=== PATIENT | female | born 1945 | race Asian ===

== ENCOUNTER → 2016-07-29 | Outpatient (CLI) | payer OTHER, MEDICARE ==
[2016-07-25 10:57] LABS: BLOOD UREA NITROGEN 18 mg/dl (7-18); BUN/CREATININE RATIO 32.1 (10-20); CREATININE 0.56 mg/dl (0.60-1.20)
[~2016-07-29] MED LIST: GADAVIST IV PRN
--- NOTE | 2016-07-29 12:46 | DIAGNOSTIC IMAGING REPORT ---
MRI OF THE RIGHT FOOT WITHOUT AND WITH GADOLINIUM CLINICAL HISTORY: Palpable mass. History of non-Hodgkin's lymphoma. COMPARISON STUDY: No previous studies for comparison. FINDINGS: Imaging was performed the sagittal, axial, and coronal planes before and after administration of 4.4 cc of intravenous Gadavist. At the level of palpable abnormality there is a 7 mm cystic lesion located dorsally near the bases of the first and second metatarsals. There is minimal joint fluid at the level the first and second tarsometatarsal joints. This lesion is most consistent with a small cyst/ganglion. There is no pathologic enhancement. There are no areas of marrow edema to indicate bony neoplasm. IMPRESSION: 7 mm cystic lesion located dorsally near the base the first and second metatarsals. This is most consistent with a small cyst/ganglion. Electronically signed by: Nick Montiel M.D. 07/29/2016 12:45 PM Dictated Date/Time: 07/29/2016 12:36 PM
== END | disposition home or self-care (01) ==
LOC: C.MRI 10:36
PROVIDERS: ATTEND Podiatrist
DX: M67.471 Ganglion, right ankle and foot (principal); E11.9 Type 2 diabetes mellitus without complications; D21.21 Benign neoplasm of connective and other soft tissue of right lower limb, including hip

== ENCOUNTER → 2016-12-24 | Outpatient (CLI) | payer OTHER, MEDICARE | END | disposition home or self-care (01) | LOC: C.CPL 10:06 | PROVIDERS: ATTEND Physician Assistant | DX: M25.511 Pain in right shoulder (principal) ==